=== PATIENT | male | born 2000 | race African-American/Black ===

== ENCOUNTER 2021-10-12 08:18 | Emergency (ER) | payer OTHER ==
[~2021-10-12] VITALS: Ht 175.3 cm; Wt 70.3 kg
--- NOTE | ~2021-10-12 | EMS ---
[address] [address] EMS Patient Care Report Name: PASTOR KELLEY Room #: PRE MGail#: [id number] Admission: Attend Phys: Discharge: Date of : 01 Report #: [id number] THIS REPORT FOR: //name// Report Transmitted: 10/12/2021 08:50 EMS Care Summary [place], [place]/[facility] Incident [id number] @ 10/12/2021 07:24 Incident Location [address] [place] [address] Patient PASTOR KELLEY Male, 21 Years 2000 Patient Address [address] [place] [address] [place] [address] Patient History None Reported, Patient Allergies Penicillin allergy,Pollen allergy, Patient Medications None Reported, Chief Complaint overdose Disposition Transported No Lights/[place] Dispatch Reason Psychiatric Problem/Abnormal Behavior/Suicide Attempt Transported To [facility] Narrative pt found seated in bed. he is a&o, states he took 8- 25 mg Benadryl over the past 24 hrs, trying to go to sleep. pt denies SI. pt has a flat affect and speaks quietly, but denies depression. he denies any school or relationship issues that instigated his use of Benadryl. he states he just wanted to go to [facility] [address] [place] [address] EMS Patient Care Report Name: PASTOR KELLEY Room #: PRE ER M.R.#: [id number] Admission: Attend Phys: Discharge: Date of : 01 Report #: [id number] sleep. pt agrees to eval at closest ER. pt ambulatory to unit, transport w/o change. report to staff rm 7. Initial Vitals @08:03P: 70,R: 18,BP: 125/83,Pain: 0/10,GCS: 15,SpO2: 99,Revised Trauma: 12, Assessments @07:55MENTAL:Place Oriented,Person Oriented,Time Oriented,Event Oriented,SKIN:No Abnormalities,HEENT:Head/Face: No Abnormalities,LUNG SOUNDS:ABDOMEN:PELVIS//GI:EXTREMITIES:PULSE:NEURO:No Abnormalities, Impression Behavioral/psychiatric episode Procedures @07:55 ALS Assessment Response: Unchanged Timeline 07:23,Call Received 07:23,Dispatch Notified 07:24,Dispatched 07:24,En Route 07:51,On Scene 07:55,At Patient 07:55,ALS Assessment,Response: Unchanged 08:03,BP: 125/83 M,PULSE: 70,RR: 18 R,SPO2: 99 Ox,ETCO2: ,BG: ,PAIN: 0,GCS: 15, 08:06,Depart Scene 08:15,At Destination 08:48,Call Closed Disclaimer [email or web address] Copyright 2021 [employer] This EMS Care Summary contains data elements from the applicable legal record (which may be displayed differently). It is designed to provide pertinent information for the following purposes: continuity of care, clinical quality, and state data reporting. The complete legal record is available to ED staff and administrators of the receiving hospital in [facility]'s Patient Tracker. All data is provided "as is."
[2021-10-12 08:58] LABS: HEMOGLOBIN 14.8 gm/dL (14.0-18.0); MCH 30.8 pg (26.0-34.0); MCHC 32.9 g/dL (28.0-37.0); MCV 93.5 fL (80.0-100.0); RBC 4.81 mil/uL (4.50-6.00); WBC 3.7 thou/uL (4.0-11.0)
[2021-10-12 09:08] LABS: AMP/METHAMP Negative (Negative); BARBITURATES Negative (Negative); BENZODIAZEPINES Negative (Negative); COCAINE Negative (Negative); METHADONE Negative (Negative); OPIATES Negative (Negative); PCP Negative (Negative)
[2021-10-12 09:12] LABS: ANION GAP 2 mmol/L (7-16); BUN 9 mg/dL (7-18); CALCIUM 9.3 mg/dL (8.5-10.1); CHLORIDE 107 mmol/L (98-107); CO2 31 mmol/L (21-32); CREATININE 1.2 mg/dL (0.7-1.3); GLUCOSE 93 mg/dL (74-106); SODIUM 140 mmol/L (136-145)
[2021-10-12 09:14] LABS: POTASSIUM 4.7 mmol/L (3.5-5.1)
[2021-10-12 09:18] LABS: ALBUMIN 3.8 g/dL (3.4-5.0); PHOSPHORUS 4.1 mg/dL (2.6-4.7); SALICYLATE < 2.8 mg/dL (2.8-20.0); SGOT 24 U/L (15-37); SGPT 19 U/L (16-63); TOTAL PROTEIN 7.2 g/dL (6.4-8.2)
[2021-10-12 11:05] VITALS: BP 111/66
--- NOTE | 2021-10-12 11:34 | EKG ---
[place] [address] [facility] [place] [address] ELECTROCARDIOGRAM REPORT Name: PASTOR KELLEY Room #: DEP MARILIN Murillo#: [id number] Admission: 10/12/21 Attend Phys: Discharge: 10/12/21 Date of : 01 Report #: [id number] [facility] ED Test Date: 2021-10-12 Test Time: 08:21:36 Pat Name: PASTOR KELLEY Department: Room: Gender: [employer] Administrator: [facility] : 2000 Requested By: Anselmo Cabrera Order Number: [id number] MD: Jonathan Moncada Measurements Intervals [place] Rate: 66 P: 55 HI: 111 QRS: 64 QRSD: 89 T: 29 QT: 399 QTc: 418 Interpretive Statements Sinus rhythm Borderline short HI interval ST elev, probable normal early repol pattern No previous ECG available for comparison Electronically Signed On 10-12-2021 11:34:27 MECHANICAL ARTIST by Jonathan Moncada [email or web address] <ELECTRONICALLY SIGNED> By: Jonathan Moncada MD 10/12/21 1134 0 0 MD NIKOLAY Sandoval
== END 2021-10-12 11:14 | disposition home or self-care (01) ==
LOC: ER 08:18
PROVIDERS: Emergency Medicine
DX: F32.A Depression, unspecified (principal)